=== PATIENT | female | born 1980 | race Two or more races ===

== ENCOUNTER 2018-01-07 11:25 | Emergency (ER) | payer OTHER ==
[~2018-01-07] VITALS: Ht 162.6 cm; Wt 79.5 kg
[2018-01-07] MEDS ORDERED: SODIUM CHLORIDE 0.9% 1,000ML IV ONE (12:00)
[2018-01-07] MEDS ORDERED: ONDANSETRON 2MG/ML, 2ML IVPush ONE (12:00)
[2018-01-07] MEDS ORDERED: SODIUM CHLORIDE FLUSH 10ML SYR IVF ONE (12:00)
[2018-01-07] MEDS ORDERED: HYDROmorphone 2 MG/ML, 1ML ONE ×2 (12:04→12:41)
[2018-01-07] MEDS ORDERED: ONDANSETRON 2MG/ML, 2ML ONE (12:04)
[2018-01-07] MEDS: HYDROmorphone 2 MG/ML, 1ML IVPush PRN ×2 (12:17→12:44)
[2018-01-07 12:24] LABS: BASOPHILS # (AUTO) 0.02 x10^3/uL (0-0.1); BASOPHILS % (AUTO) 0 % (0-1); EOSINOPHILS # (AUTO) 0.07 x10^3/uL (0-0.4); EOSINOPHILS % (AUTO) 1 % (1-7); LYMPHOCYTES # (AUTO) 2.62 x10^3/uL (1-3.4); LYMPHOCYTES % (AUTO) 31 % (22-44); MD NO; MEAN CORPUSCULAR HEMOGLOBIN 26.3 pg (27.0-34.8); MEAN CORPUSCULAR HGB CONC 32.8 g/dL (32.4-35.8); MEAN CORPUSCULAR VOLUME 80.3 fL (80-100); MEAN PLATELET VOLUME 8.6 fL (7.4-10.4); MONOCYTES % (AUTO) 7 % (2-9); NEUTROPHILS # (AUTO) 5.08 x10^3/uL (1.8-6.8); NEUTROPHILS % (AUTO) 61 % (42-75); PLATELET COUNT 343 x10^3/uL (130-400); RED BLOOD COUNT 4.23 x10^6/uL (3.82-5.3)
[2018-01-07] MEDS ORDERED: PLEASE ENTER ALLERGIES MC SCH (12:30)
[2018-01-07 12:34] LABS: ALBUMIN 3.5 g/dL (3.4-5.0); ANION GAP 7 mmol/L (5-15); CALCIUM 9.4 mg/dL (8.5-10.1); CHLORIDE 110 mmol/L (98-107); CREATININE 0.61 mg/dL (0.55-1.02)
[2018-01-07 12:47] LABS: HCG UR SG 1.006 (1.003-1.030)
[2018-01-07 13:26] LABS: MICROSCOPIC NOT IND
[2018-01-07 13:30] LABS: CULTURE INDICATED? NO
[2018-01-07 13:59] VITALS: BP 98/49
== END 2018-01-07 14:20 | disposition home or self-care (01) ==
LOC: ED 13:30
DX: N83.291 Other ovarian cyst, right side (principal)
CPT/HCPCS: 36415; 74176; 80048; 81003; 81025; 82040; 83605; 85025; 96361; 96374; 96375; 99285; J1170; J2405; J7030

== ENCOUNTER 2019-01-10 11:43 | Outpatient (CLI) | payer OTHER ==
[~2019-01-10 11:43] MED LIST: No meds per pt.
[2019-01-10] MEDS ORDERED: OMNIPAQUE 350 MG/ML, 100ML BOTTLE ONE (13:51)
== END 2019-01-10 23:59 | disposition home or self-care (01) ==
LOC: RAD 11:43
PROVIDERS: ATTEND Obstetrics & Gynecology Gynecology
DX: M79.9 Soft tissue disorder, unspecified (principal); R10.9 Unspecified abdominal pain; Z90.710 Acquired absence of both cervix and uterus
CPT/HCPCS: 74177; Q9967